=== PATIENT | female | born 1990 | race Hispanic/Latino ===

== ENCOUNTER 2018-07-14 20:37 | Observation (INO) ==
[2018-07-14] MEDS ORDERED: TYLENOL PO ONE (21:16)
--- NOTE | 2018-07-14 21:22 | PROVIDER DOCUMENTATION ---
HPI-General Adult - General Chief Complaint: B/P Problems Stated Complaint: 18 WEEK PREGRANT & HIGH BLOOD PRESSURE Time Seen by Provider: 07/14/18 21:15 Source: patient Allergies/Adverse Reactions: Patient Allergies Allergy/AdvReac Type Severity Reaction Status Date / Time No Known Allergies Allergy Verified 01/31/18 18:10 Home Medications: Home Medication List Medication Instructions Recorded Confirmed Last Taken Type Metformin [Glucophage] 1,000 mg PO AC 09/01/17 07/14/18 09/01/17 History - History of Present Illness -Gen Adult Nature of Presenting Problems: 28 YOF PRESENTS WITH C/O HTN IN . SHE REPORTS HER BP WAS 220 SYSTOLIC, THIS WAS TAKEN BY A FRIEND WITH A MACHINE. SHE HAS HAD ONE US DONE BUT HAS NOT SEEN OBGYN AT THIS TIME. SHE C/O A HEADACHE . DENIES BLURRED VISION, WEAKNESS, INCREASED DTR OR OTHER SYMPTOMS Location of Pain/Injury: reports: head (HEADACHE) Pain Radiation: reports: no radiation Quality of Pain: reports: aching Severity: reports: mild Onset/Duration: reports: unsure Timing: reports: still present Context/Activities at Onset: reports: none Modifying Factors: improves with: nothing Associated Symptoms: reports: denies symptoms Similar Symptoms Previously?: No Recently seen or treated by another doctor?: No Review of Systems - Adult - REVIEW OF SYSTEMS - ADULT Constitutional: reports: no symptoms reported. denies: see HPI, chills, fever, fatique, night sweats, weight gain, weight loss, other Eyes: reports: no symptoms reported. denies: see HPI, discharge, dry eyes, decreased vision, blurred vision, double vision, eye pain, redness, other Ears, Nose, Mouth & Throat: reports: no symptoms reported. denies: see HPI, ear discharge, ear pain, hearing loss, tinnitus, epistaxis, sinus problem, nose pain, loose teeth, mouth/dental pain, mouth swelling, hoarseness, throat pain, throat swelling, other Cardiovascular: reports: no symptoms reported. denies: see HPI, chest pain, edema, heart murmur, irregular heart rate, orthopnea, palpitations, poor circulation, PND, syncope, other Respiratory: reports: no symptoms reported. denies: see HPI, chronic cough, cough, dyspnea on exertion, excessive sputum production, hemoptysis, pleurisy, shortness of breath, wheezing, other Gastrointestinal: reports: no symptoms reported. denies: see HPI, abdominal pain, hematemesis, constipation, diarrhea, difficulty swallowing, frequent heartburn, nausea, poor appetite, rectal bleeding, vomiting, other Genitourinary: reports: no symptoms reported. denies: see HPI, dysuria, discharge, frequency, flank pain, frequent UTI's, hematuria, hesitency, incontinence, urinary retention, urgency, other Musculoskeletal: reports: no symptoms reported. denies: see HPI, bone pain, ba ck pain, frequent leg cramps, joint pain, joint swelling, muscle aches, muscle weakness, neck pain, other Integumentary: reports: no symptoms reported. denies: see HPI, hives, hair loss, itching, mole changes, nail changes, rash, skin sores/ulcer, skin thickening, other Neurological: reports: headache/migraines. denies: no symptoms reported, see HPI, ataxia, dizziness/vertigo, loss of balance, numbness, paresthesia, seizure, slurred speech, syncope, tremors, other Psychiatric: reports: no symptoms reported. denies: see HPI, anxiety, anti- depressant use, alcohol/drug dependence, depression, emotional problems, insom keira, panic attacks, suicidal thoughts, other Endocrine: reports: no symptoms reported. denies: see HPI, change in skin pigment, excessive sweating, goiter, cold intolerance, heat intolerance, increased hunger, increased thirst, polyuria, other Hematologic/Lymphatic: reports: no symptoms reported. denies: see HPI, blood clots, easy bruising, low blood count, lymphedema, prolonged bleeding, swollen lymph nodes, transfusions, other Allergic/Immunologic: reports: no symptoms reported. denies: see HPI, allergic reactions, allergic rhinitis, asthma, eczema, food allergy, frequent infections, hay fever, hives, positive PPD, urticaria, other Past History - Adult - PAST MEDICAL HISTORY-ADULT Review of Records: reports: Nursing Assessment Review, Social history reviewed & non-contributory. Major Childhood Illnesses: reports: denies history Cardiovascular: reports: HTN Respiratory: reports: denies history Gastrointestinal: reports: denies history Obstetrical/Gynecological: reports: denies history, ovarian cysts Genitourinary: reports: denies history Musculoskeletal: reports: denies history Neurological: reports: denies history Psychiatric: reports: denies history Endocrine/Immune: reports: anemia, Diabetes Other Conditions: reports: denies history - PRIOR SURGERIES/PROCEDURES Surgical/Procedure History: reports: none, cholecystectomy, other (ovarian cysts) - IMMUNIZATION STATUS Childhood Immunizations: See Nurse Assessment Flu Vaccine: See Nurse Assessment - FAMILY HISTORY Family History: reviewed, not pertinent Physical Exam-General - PHYSICAL EXAM-ADULT Initial Vital Signs Reviewed: Yes - CONSTITUTIONAL General Appearance: appears well, alert, no apparent distress - EYES Eyes: PERRL/EOMI - HEAD, EARS, NOSE, MOUTH & THROAT HENMT: normocephalic/atraumatic, moist mucous membranes, normal ENT inspection - NECK Neck: non-tender, full range of motion, supple - RESPIRATORY Respiratory: chest non-tender, lungs clear - CARDIOVASCULAR Cardiovascular: normal peripheral pulses, regular rate, rhythm, no edema, no gallop, no JVD - GASTROINTESTINAL (ABDOMEN) Abdominal Exam: normal bowel sounds, non tender, soft - LYMPHATIC Lymphatic: no adenopathy - MUSCULOSKELETAL Back Exam: normal inspection, no CVA tenderness Extremity: normal range of motion, non-tender, normal gait - SKIN Integumentary: normal color, normal turgor, warm/dry - NEUROLOGIC Neurologic: grossly normal, other (NORMAL PATELLAR REFLEXES, NO HYPERREFLEXIA) - PSYCHIATRIC Psych/Mental Status: normal mood/affect, oriented x 3 Progress - PLAN OF CARE/RESULTS Progress/Plan/Lab Results: FHT= 148, checked by Dr. Phillips Vital Signs - 8 hr 07/14/18 21:07 Temperature 98.6 F Pulse Rate 76 Respiratory Rate 18 Blood Pressure 121/92 O2 Sat by Pulse Oximetry 98 Orders Category Date Time Status Heart Tones NOW Care 07/14/18 21:17 Ordered Acetaminophen [Tylenol] Med 07/14/18 21:16 Once 1,000 mg PO NOW ONE MD RECOMMENDS 10MG HYDRALAZINE IV FOR BP, AWAIT LABS, [facility]. WILL CONTINUE TO MONITOR BP Result Diagrams: 07/15/18 00:11 - EKG 1 Time of EKG reading by physician:: 00:14 EKG Read and Signed by:: Chriss Phillips EKG Interpretation (*Must complete 3 of following elements*): Normal Rate: 62 Rhythm: NSR [place]: normal QRS: normal [place] Interval: normal ST Wave: normal - CONSULTS/PCP/HOSPITALIST Notification #1 *Consult/PCP/Hospitalist*: DR MASON DECLINED ADMISSION IS NOT VIABLE AT 18 WKS. Time Discussed: 23:25 Reason/Comments: DOES NOT RECOMMEND MAGNESIUM, TREAT MEDICINE PATIENT #2 Consult: DR. MCKEON Time Discussed: 01:40 Reason/Comments: ADMIT WITH PRN LABETOLOL Consult Disposition: Admit - CHANGE OF SHIFT REPORT (ED Provider) 1 Report Given and Care Transferred to:: DR PHILLIPS Time of Transfer: 00:56 Items Pending: Other (BP CONTROL---> ADMIT V DC) Departure - Departure Date of Disposition Decision: 07/15/18 Time of Disposition Decision: 01:41 DIAGNOSIS: Hypertensive urgency, 18 weeks gestation of Leukocytosis Qualifiers: Leukocytosis type: unspecified Qualified Code(s): D72.829 - Elevated white blood cell count, unspecified Proteinuria Qualifiers: Proteinuria type: unspecified Qualified Code(s): R80.9 - Proteinuria, unspecified Disposition: ADMITTED INPATIENT 09 Certified Medical Emergency: Emergent Condition: Stable Additional Freetext Instructions: We have examined and treated you today on an emergency basis only. This was not a substitute for, or an effort to provide, complete medical care. In most cases, you must let your doctor check you again. Tell your doctor about any new or lasting problems. We cannot recognize and treat all injuries or illnesses in one Emergency Department visit. If you had special tests, such as X-rays or CT scans, will be reviewed by radiologist and will call you if there are any new darling ggestions Follow up with primary care provider in 1 to 2 days if no improvement. If you do not have a primary care provider, you need to choose one as soon as possible. Take medicines as prescribed. Monitor for any side effects or adverse events from medications. If any side effect, adverse event or rash develops, or if you suspect any other adverse reaction to the medication, then discontinue the medication immediately and contact clinic /PCP or go to the nearest ER. Narcotic meds / sedative meds instruction - patent advised not to drive, operate any machinery or go into water after taking meds as it may impair mental ability to react to the situation in an appropriate manner. Continue other current medicines. Follow up with PCP within 24-48 hours, or sooner if symptoms worsen or fail to improve. Patient / guardian verbalizes understanding of treatment plan, medication, and side effects and agrees with treatment plan. Patient leaves ER in stable condition and ambulatory state. Return to ER as needed. Discharge instructions reviewed verbally and given to patient in written form. Follow up with OB provider without fail as soon as possible. ED Follow Up Instructions: * MAKE AN APPOINTMENT WITH INSURANCE [employer]ENSE [facility] * CONTACT FREE CLINIC TOMORROW * CHECK YOUR BLOOD PRESSURE REGULARLY AND KEEP A LOG You have been treated by a care provider in the Emergency Department. These instructions are being provided to you so you can have an understanding of how to care for yourself upon discharge. Upon discharge from the Emergency Department, you are responsible for making arrangements for follow-up care by a physician of your choice. Take all prescribed medications as directed. Return to the Emergency Department immediately for any new or worsening symptoms. You may call the Physician Referral phone number at [phone] to obtain a list of Physicians who are taking new patients. Referrals and Follow-Ups: Cecilia Reid, [ACTIVE STAFF PHYSICIAN] - - Critical Care Note This patient required my direct & personal management of CC.: No Attestation - Physician/ CHARU Attestation Patient care was provided by Advanced Practice Provider:: Yes Advanced Practice Provider:: Jessica Gaytan Advanced Practice Provider documentation review:: The Mid-level provider documentation, treatment plan and medical decision making was reviewed by the physician who agrees with all treatment and medical decision making by the MLP. The physician spent face to face time with patient:: Yes Advanced Practice Provider documentation review:: Supervising physician onsite and consulted in the evaluation and care of this patient. The physician did have a face to face encounter with the patient.
[2018-07-14] MEDS ORDERED: APRESOLINE IV ONE (23:59)
[2018-07-15] MEDS ORDERED: TYLENOL ONE (00:28)
[2018-07-15 00:44] LABS: INR 0.88; PROTIME 12.4 Seconds (11.0-16.0)
[2018-07-15 00:45] LABS: PTT 25.8 Seconds (22.3-41.8)
[2018-07-15 00:46] LABS: BASO# 0.14 X1000 (0.0-0.2); BASO% 0.6 % (0.0-0.8); EOS# 0.45 X1000 (0.0-0.7); EOS% 1.8 % (0.0-10.0); HEMATOCRIT 29.3 % (37.0-47.0); HEMOGLOBIN 9.5 g/dL (12.0-16.0); IMM GRAN# 0.06 X1000 (0.0-0.04); IMM GRAN% 0.2 % (0.0-0.5); LYMPH# 8.28 X1000 (1.2-3.4); MCH 22.8 PG (27-31); MCHC 32.4 g/dL (33-37); MCV 70.4 FL (81-99); MONO# 1.57 X1000 (0.11-0.59); MONO% 6.3 % (1.7-9.3); MPV 10.2 FL (7.4-10.4); NEUT# 14.56 X1000 (1.4-6.5); NEUT% 58.1 % (42.2-75.2); PLT 605 X1000 (130-400); RBC 4.16 XMIL (4.2-5.4); RDW 21.2 % (11.5-14.5); WBC 25.06 X1000 (4.8-10.8)
[2018-07-15] MEDS ORDERED: LABETALOL IV ONE (00:55)
[2018-07-15] MEDS ORDERED: LABETALOL ONE (01:00)
[2018-07-15 01:19] LABS: BILIRUBIN URINE NEGATIVE (NEGATIVE); BLOOD URINE TRACE (NEGATIVE); CLARITY CLEAR (CLEAR); COLOR YELLOW; GLUCOSE URINE NEGATIVE (NEGATIVE); KETONE URINE NEGATIVE (NEGATIVE); LEUKOCYTES URINE NEGATIVE (NEGATIVE); NITRITE URINE NEGATIVE (NEGATIVE); PH URINE 6.5; UR AMPHETAMINES QUAL NONE DETECTED (NONE DETECT); UR BARBITUATES QUAL NONE DETECTED (NONE DETECT); UR BENZODIAZEPIN QUAL NONE DETECTED (NONE DETECT); UR CANNABINOIDS QUAL NONE DETECTED (NONE DETECT); UR COCAINE QUAL NONE DETECTED (NONE DETECT); UR METHADONE QUAL NONE DETECTED (NONE DETECT); UR METHAMPHETAMINE QUAL NONE DETECTED (NONE DETECT); UR OPIATES QUAL NONE DETECTED (NONE DETECT); UR OXYCODONE QUAL NONE DETECTED (NONE DETECT); UR PCP QUAL NONE DETECTED (NONE DETECT); UR PROPOXYPHENE QUAL NONE DETECTED (NONE DETECT); UR TCA QUAL NONE DETECTED (NONE DETECT); UROBILINOGEN URINE NORMAL
[2018-07-15 01:20] LABS: URINE BACTERIA NEGATIVE /HFP; URINE EPITHELIAL CELLS <10 /HPF (<10); URINE RBC <10 /HPF (<10); URINE SOURCE CLEAN CATCH; URINE WBC <10 /HPF (<10)
[2018-07-15] MEDS ORDERED: LABETALOL IV PRN (01:46)
[2018-07-15 02:04] LABS: AGAP 15; ALBUMIN 3.5 g/dL (3.5-5.0); ALKALINE PHOSPHATASE 109 U/L (32-104); BUN 29 mg/dL (8-22); CALCIUM 9.2 mg/dL (8.8-10.2); CHLORIDE 101 mmol/L (98-107); COSMO 281; CREATININE 2.2 mg/dL (0.5-0.9); ESTIMATED GFR 26; GLUCOSE 91 mg/dL (70-104); GOT 11 U/L (10-30); GPT 9 U/L (10-36); POTASSIUM 3.2 mmol/L (3.5-5.1); SODIUM 138 mmol/L (136-145); TCO2 22 mmol/L (25-35); TOTAL BILIRUBIN < 0.15 mg/dL (0.20-1.00); TOTAL PROTEIN 7.7 g/dL (6.3-8.3)
[2018-07-15] MEDS ORDERED: KLOR-CON PO ONE (10:47)
[2018-07-15] MEDS: NS 1,000 ML IV SCH (11:20)
--- NOTE | 2018-07-15 11:25 | HISTORY AND PHYSICAL ---
PRIMARY CARE PHYSICIAN: Listed as none. CHIEF COMPLAINT: Increased blood pressure, stating it was 220 systolic taken by a machine at home, is also noted to be 18 weeks with her 4th child but has not seen VALVING MACHINE OPERATOR at this time. HISTORY OF PRESENTING ILLNESS: This is a 28-year-old, female who presents to [facility] ER with complaints of high blood pressure. States that it was 220 systolic when she took it with a machine at home. She is currently 18 weeks with her 4th child. Has had one ultrasound performed but has not seen any VALVING MACHINE OPERATOR at this time. States she has also been having a headache but denied any blurred vision or weakness. When she arrived to the emergency room, her blood pressure was 121/92. This morning, it was 169/80. Her workup in the emergency room showed a white blood cell count of 25.06. Her potassium was 3.2, BUN of 29, with a creatinine of 2.2. Urinalysis was negative. Urine drug screen was negative. She was admitted for further evaluation and treatment. It is noted by ER records that heart tones were obtained by ER physician and were noted at 148. PAST MEDICAL HISTORY: Hypertension, diabetes, and anemia. PAST SURGICAL HISTORY: Cholecystectomy and an ovarian cyst removed. FAMILY HISTORY: Reviewed and noncontributory. SOCIAL HISTORY: She currently lives with family. Denies any tobacco, alcohol, or illicit drug use. ALLERGIES: She has no known drug allergies. HOME MEDICATIONS: She was taking lisinopril prior to this but she quit once she learned that she was so she is no longer taking that at this time. She does take gabapentin 600 mg p.o. daily and metformin 1000 mg p.o. b.i.d., and we will hold both of those at this time. LABORATORY DATA: Showed a white blood cell count of 25.06, hemoglobin of 9.5, hematocrit 29.3, platelets of 605,000. PT and INR of 12.4 and 0.88. Sodium 138, potassium 3.2, chloride 101, CO2 22, BUN of 29, creatinine 2.2, glucose 91. Serum was 21,342. Urinalysis was negative. Urine drug screen showed none detected. REVIEW OF SYSTEMS: She denied any fever, chills, blurred vision, dizziness. She was positive for a headache. Denied any chest pain, coughing, shortness of breath. Denied any abdominal pain, constipation, diarrhea, burning or hurting with urination. PHYSICAL EXAMINATION: VITAL SIGNS: On arrival, she had a temperature of 98.6 degrees, a pulse of 76, respirations 18, blood pressure 121/92, saturating 98% on room air. Currently, blood pressure is 169/80. GENERAL: This is a 28-year-old, female lying in the bed. Answers questions appropriately. HEENT: Normocephalic, atraumatic. Normal ENT inspection. Oropharynx and nares are clear. Eyes: Pupils are equal, round, reactive to light and accommodation. Extraocular movements are intact. NECK: Normal inspection. Normal range of motion. LUNGS: Clear to auscultation bilaterally with equal lung expansion and chest wall movement. HEART: With regular rate and rhythm. No murmurs, rubs, or gallops. ABDOMEN: Soft, nontender, nondistended. Bowel sounds are present x4 quadrants. MUSCULOSKELETAL: She has 5/5 strength x4 extremities. NEUROLOGICAL: The cranial nerves 2-12 appear grossly intact. ASSESSMENT: 1. Hypertension. 2. Eighteen weeks intrauterine . 3. Leukocytosis. 4. Mild hypokalemia. 5. Acute kidney injury. 6. Diabetes type 2. PLAN: She is admitted, placed on O2 per protocol, healthy heart diet. We will consult VALVING MACHINE OPERATOR and we will get a ultrasound obstetric complete. She will be started on methyldopa 250 mg p.o. t.i.d., hydralazine 10 mg IV q.4 hours p.r.n. for blood pressure greater than 180/100. Place her on normal saline at 125 mL an hour. Give her a potassium 40 mEq p.o. x1 now, Tylenol 650 mg p.o. q.4 hours p.r.n. for pain and headache. We are going to recheck a CBC now as she does not have any clear signs of infection so we are hoping that this is most likely reactive but will be reviewed once results. Further orders after seen by attending and by party plan sales consultant. Dictated by EDDIE Ferrer for Rohan Mata MD Addendum: Patient seen and examined by myself. Agree with EDDIE note. It reflects my assessment and plan. Patient is being admitted to hospital for hypertensive urgency. She has hypertension but because of she stopped taking Lisinopril. Will start Methyldopa and Hydralazine and will go from there. If BP is better tomorrow will discharge her. Will consult OB. cc: EDDIE Ferrer MD MTDD
[2018-07-15] MEDS: ALDOMET PO SCH ×3 (11:45→20:47)
[2018-07-15] MEDS: TYLENOL PO PRN (11:47)
[2018-07-15 11:51] LABS: BASO# 0.09 X1000 (0.0-0.2); BASO% 0.6 % (0.0-0.8); EOS% 0.7 % (0.0-10.0); HEMATOCRIT 29.4 % (37.0-47.0); HEMOGLOBIN 9.4 g/dL (12.0-16.0); IMM GRAN# 0.04 X1000 (0.0-0.04); IMM GRAN% 0.3 % (0.0-0.5); LYMPH# 4.24 X1000 (1.2-3.4); LYMPH% 27.9 % (20.5-51.1); MCH 22.3 PG (27-31); MCV 69.8 FL (81-99); MONO# 0.78 X1000 (0.11-0.59); MONO% 5.1 % (1.7-9.3); MPV 9.6 FL (7.4-10.4); NEUT# 9.94 X1000 (1.4-6.5); NEUT% 65.4 % (42.2-75.2); PLT 575 X1000 (130-400); RBC 4.21 XMIL (4.2-5.4); RDW 21.5 % (11.5-14.5); WBC 15.19 X1000 (4.8-10.8)
[2018-07-15 14:06] LABS: ANISOCYTOSIS 2+; LYMPHS 28 % (21-51); MICROCYTOSIS 1+; MONO 6 % (1-9); SEGS 66 % (42-75)
--- NOTE | 2018-07-15 14:48 | Diag Imaging Result Doc PS360 ---
EXAM: US OBS COMPLETE > 14 WKS INDICATION: hypertension TECHNIQUE: COMPARISON: None. FINDINGS: There is a single viable intrauterine gestation. The presentation is transverse toward the maternal right. The placenta is at the fundus. There is no evidence of placenta previa. The cervix is closed. The cervical length is 3.5 cm. No gross or placental anomalies are appreciated. Specifically, a four-chamber heart, three-vessel umbilical cord, bladder, kidneys, stomach, and spine are identified and are unremarkable. FHR-133 bpm CAROLE-13.36 cm EFW-0 lbs. 8 oz. +/- 1 ounce GA by ultrasound-17 weeks 4 days +/- 8 days IMPRESSION: Single viable intrauterine gestation with no gross anomalies appreciated. Electronically signed by Anthony Julian 07/15/2018 2:45 PM
--- NOTE | 2018-07-15 18:00 | CONSULTATION ---
DATE OF CONSULTATION: 07/15/2018 REQUESTING PHYSICIAN: Dr. Espinoza. HPI: Patient 28-year-old G4, P3, with no care this . Presents to the emergency room with complaints of headaches. Upon evaluation, patient noted to have severely elevated blood pressures and was admitted. OB consultation was obtained after admission. PAST MEDICAL HISTORY: Significant for a history of preeclampsia with prior pregnancies as well as diabetes mellitus. PAST SURGICAL HISTORY: Significant for cholecystectomy as well as surgery for left ovarian cyst. PAST OB HISTORY: G4, P3, spontaneous vaginal delivery x3. She has had preeclampsia and diabetes during as mentioned above. SOFTWARE COMPUTER SPECIALIST HISTORY: Menarche at age 10. FAMILY HISTORY: Significant for diabetes mellitus, high blood pressure and stomach cancer. SOCIAL HISTORY: Tobacco use none. Alcohol use none. MEDICATIONS: vitamins and metformin 1000 mg daily. ALLERGIES: No known drug allergies. PHYSICAL EXAMINATION: Height 5 feet 3 inches, weight 170 pounds. Blood pressure range 152/75 to 194/90, pulse of 74, respirations 20. heart rate was 135.HEENT: Pupils equal, round, reactive to light, accommodation. Extraocular movements intact. Oropharynx clear. Neck: Supple. No thyromegaly. Lungs: Clear to auscultation. Heart: Regular rate and rhythm. Abdomen: Gravid. Nontender. Extremities: No clubbing, cyanosis, or edema noted. DATA: Ultrasound shows fetus 17 weeks and 4 days with a heart rate of 133 and what appears to normal anatomy for 17 weeks. OTHER LABORATORY STUDIES: Showed a white count of 15.1, hemoglobin of 9.4, hematocrit 29.4, platelet count 575,000 and glucose obtained on the chemistry was normal at 91. Potassium was low at 3.2. Urine had 3+ protein. Urine drug screen was negative. ASSESSMENT AND PLAN: Intrauterine at 17 and 4/7 weeks with severely elevated blood pressure. Patient admitted by the medicine service and is working on blood pressure with Aldomet 250 mg t.i.d. and Apresoline as needed IV. Would obtain a panel at present time. Also check a hemoglobin A1c. Will start on vitamins and iron and will continue to follow along. cc: Jose Manuel Herrera III, MD
[2018-07-15] MEDS: APRESOLINE IV PRN (18:37)
[2018-07-15 19:13] LABS: BASO% 0.6 % (0.0-0.8); EOS# 0.22 X1000 (0.0-0.7); EOS% 1.3 % (0.0-10.0); HEMATOCRIT 28.6 % (37.0-47.0); IMM GRAN# 0.05 X1000 (0.0-0.04); IMM GRAN% 0.3 % (0.0-0.5); LYMPH% 30.4 % (20.5-51.1); MCH 22.3 PG (27-31); MCHC 31.5 g/dL (33-37); MONO# 1.06 X1000 (0.11-0.59); MONO% 6.1 % (1.7-9.3); MPV 10.6 FL (7.4-10.4); NEUT# 10.73 X1000 (1.4-6.5); NEUT% 61.3 % (42.2-75.2); PLT 515 X1000 (130-400); RBC 4.03 XMIL (4.2-5.4); RDW 21.8 % (11.5-14.5); WBC 17.46 X1000 (4.8-10.8)
[2018-07-15 19:18] LABS: HEMOGLOBIN A1C 5.8 % (4.8-6.0)
[2018-07-15 19:23] LABS: RPR NON-REACTIVE (NONREACTIVE)
[2018-07-15 19:25] LABS: RAPID HIV PRESUMPTIVE NEGATIVE
[2018-07-15 19:27] LABS: EOS 1 % (1-10); LYMPHS 30 % (21-51); MICROCYTOSIS 3+; MONO 6 % (1-9); SEGS 63 % (42-75)
[2018-07-16] MEDS: APRESOLINE IV PRN ×2 (00:59→03:43)
[2018-07-16 04:37] LABS: RUBELLA SCREEN IMMUNE (IMMUNE)
[2018-07-16] MEDS: NS 1,000 ML IV SCH (05:45)
--- NOTE | 2018-07-16 07:41 | EKG Report ---
Test Performed on : 07/15/2018 00:13:09 AM Test Reason : ER Blood Pressure : / mmHG Vent. Rate : 062 BPM Atrial Rate : 062 BPM P-R Int : 134 ms QRS Dur : 078 ms QT Int : 458 ms P-R-T Axes : 034 038 027 degrees QTc Int : 464 ms Normal sinus rhythm. Normal ECG No previous ECGs available Unconfirmed Result
[2018-07-16] MEDS: ALDOMET PO SCH (08:10)
[2018-07-16] MEDS: TYLENOL PO PRN (08:13)
[2018-07-16] MEDS ORDERED: APRESOLINE PO SCH (09:00)
[2018-07-16] MEDS ORDERED: FERROUS SULFATE PO SCH (09:00)
[2018-07-16] MEDS ORDERED: PRECARE PO SCH (09:00)
[2018-07-16 09:10] LABS: BASO% 0.6 % (0.0-0.8); EOS# 0.24 X1000 (0.0-0.7); EOS% 1.4 % (0.0-10.0); HEMATOCRIT 30.3 % (37.0-47.0); HEMOGLOBIN 9.7 g/dL (12.0-16.0); IMM GRAN# 0.04 X1000 (0.0-0.04); IMM GRAN% 0.2 % (0.0-0.5); LYMPH# 4.07 X1000 (1.2-3.4); MCH 22.4 PG (27-31); MONO# 0.78 X1000 (0.11-0.59); MONO% 4.6 % (1.7-9.3); MPV 9.5 FL (7.4-10.4); NEUT% 69.2 % (42.2-75.2); PLT 582 X1000 (130-400); RBC 4.33 XMIL (4.2-5.4); RDW 21.6 % (11.5-14.5); WBC 16.93 X1000 (4.8-10.8)
[2018-07-16 09:30] VITALS: BP 167/75
[2018-07-16 09:38] LABS: POTASSIUM 3.7 mmol/L (3.5-5.1)
[2018-07-16 09:40] LABS: EOS 1 % (1-10); LYMPHS 25 % (21-51); MONO 4 % (1-9); SEGS 7 % (42-75)
[2018-07-16 23:40] LABS: HIV ANTIBODY SCREEN SEE COMMENTS
--- NOTE | 2018-07-17 01:35 | DISCHARGE SUMMARY ---
ADMISSION DATE: 07/15/2018 DISCHARGE DATE: 07/16/2018 PRIMARY CARE PHYSICIAN: None. ADMISSION DIAGNOSES: 1. Hypertension. 2. Eighteen weeks intrauterine . 3. Leukocytosis. 4. Mild hypokalemia. 5. Acute kidney injury. 6. Diabetes type 2. DISCHARGE DIAGNOSIS: 1. Hypertension. 2. Eighteen weeks intrauterine . 3. Leukocytosis. 4. Mild hypokalemia, resolved. 5. Acute kidney injury, improving. 6. Diabetes type 2. SUMMARY OF FINDINGS: This is a 28-year-old female who presented to the ER with complaints of a high blood pressure stating that it was 220 systolically when she took it with her machine at home. She is noted to be 18 weeks with her 4th child. Had 1 ultrasound done, but had not followed up with DIRECTOR OF LOSS PREVENTION as her previous appointment was scheduled for this next week. States she has been having a headache, but denied any blurred vision or weakness. When she arrived to the emergency room, her blood pressure was 121/92. It did jump up to 169/80. She had a creatinine of 2.2. Urine drug screen was negative. Urinalysis was negative. heart tones obtained by the ER physician were 148. She was admitted. We obtained a consultation by DIRECTOR OF LOSS PREVENTION to establish. We did an obstetric ultrasound that showed a single viable intrauterine gestation with no gross anomalies appreciated. Was found to be 17 weeks and 4 days intrauterine . we started her on methyldopa 250 mg p.o. t.i.d., gave her hydralazine 10 mg IV q.4 hours p.r.n. for blood pressure greater than 180/100. Her blood pressure this morning was 146/86. We did recheck labs. Her white blood cell count was elevated on arrival at 25.06, currently at 16.93. We do not have any source of infection. Her urine was clear. Her RPR was nonreactive. HIV 1 and 2 antibody rapid was presumptive negative and her rubella immunity screen was immune so it was felt that she could safely be discharged home to follow up with DIRECTOR OF LOSS PREVENTION. DISCHARGE MEDICATIONS: Ferrous sulfate 325 mg p.o. daily, hydralazine 25 mg p.o. b.i.d. #120 with 1 refill, Lantus SoloSTAR 10 units subcutaneous daily and vitamin 1 p.o. daily. FOLLOW-UP: She will follow up with DIRECTOR OF LOSS PREVENTION as directed for her care. The patient verbalized understanding of all discharge instructions. TIME SPENT: A 35 minute discharge. Dictated by EDDIE Ferrer for Rohan Mata MD Addendum: Patient seen and examined by myself. Agree with EDDIE note. It reflects my assessment and plan. Patient is being discharged in stable condition to home and will be seen by OB- [facility] in a week or two. cc: EDDIE Ferrer MD [facility]
[2018-07-17 09:00] LABS: HEPATITIS B SURFACE ANTIGEN SEE COMMENTS
== END 2018-07-16 10:40 | disposition home or self-care (01) ==
LOC: SUPCPDRO → P.MEDSURG 20:37 → P.ED 20:37
PROVIDERS: ATTEND Internal Medicine
CPT/HCPCS: 76805; 80048; 80053; 80104; 80301; 80305; 81001; 82947; 83036; 84702; 85025; 85610; 85730; 86592; 86701; 86703; 86762; 86850; 86900; 86901; 87340; 87389; 87390; 87491; 87591; 93005; 94761; 96374; 96375; 99285; A9270; G0431; G0434; G0477; J0360; J7030